=== PATIENT | female | born 1955 | race Caucasian/White ===

== ENCOUNTER → 2017-11-07 | Outpatient (CLI) | payer OTHER ==
[~2017-11-07] MED LIST: ASPI81EC; CEPH500; CEPH500 PO; CYCL10 PO; EPIN.3I IM; HYDPAM50 PO; NAPR500 PO; OXYACE5T PO; PRED10 PO; PROM25 PO; Zofran Odt4 MG SL
== END | disposition home or self-care (01) ==
LOC: PLD 07:56 → LAB SHORT 07:56
DX: N95.0 Postmenopausal bleeding (principal)
CPT/HCPCS: 88305

== ENCOUNTER → 2017-11-07 | Outpatient (CLI) | payer OTHER ==
[2017-11-09 16:09] LABS: HPV Genotype 16 Not Detected (NOTDET); HPV Genotype 18 Not Detected (NOTDET)
[2017-11-14 13:34] LABS: HPV High Risk Other Not Detected (NOTDET)
== END ==
LOC: LAB 12:15
PROVIDERS: Obstetrics & Gynecology
DX: Z01.419 Encounter for gynecological examination (general) (routine) without abnormal findings (principal)
CPT/HCPCS: 87624; G0123